=== PATIENT | female | born 1995 | race Caucasian/White ===

== ENCOUNTER → 2020-04-25 18:41 | Observation (INO) ==
[2020-04-25 17:03] VITALS: BP 121/69
[2020-04-25 18:04] LABS: Bacteria,Urine Few per hpf (None-Few); Bilirubin,Urine Negative (Negative); Blood,Urine Negative (Negative); Clarity,Urine Turbid (Clear); Color,Urine Light-Yellow (Yellow); Glucose,Urine (UA) Normal (Normal); Ketones,Urine Negative (Negative); Leukocyte Esterase,Urine Small (Negative); Mucus,Urine Few per lpf (None-Few); Nitrite,Urine Negative (Negative); Protein,Urine Negative (Neg-Trace); RBC,Urine 0-3 per hpf (0-3); Squamous Epithelial Cell,Urine Moderate per hpf (None-Few); Urobilinogen,Urine Normal (Normal)
== END | disposition home or self-care (01) ==
LOC: 1NENULAB
PROVIDERS: ADMIT Obstetrics & Gynecology; ATTEND Obstetrics & Gynecology

== ENCOUNTER → 2020-05-02 16:17 | Observation (INO) ==
[2020-05-02 15:51] LABS: Amorphous Sediment,Urine Few per hpf (None-Few); Bacteria,Urine Few per hpf (None-Few); Bilirubin,Urine Negative (Negative); Blood,Urine Negative (Negative); Clarity,Urine Turbid (Clear); Color,Urine Yellow (Yellow); Glucose,Urine (UA) Normal (Normal); Ketones,Urine Negative (Negative); Leukocyte Esterase,Urine Moderate (Negative); Mucus,Urine Few per lpf (None-Few); Nitrite,Urine Negative (Negative); PH,Urine 6.5 pH Units (5.0-8.0); Protein,Urine Trace mg/dL (Neg-Trace); Specific Gravity,Urine 1.013 (1.010-1.025); Squamous Epithelial Cell,Urine Moderate per hpf (None-Few); Transitional Epi Cells,Urine Few per hpf (None-Few); Urobilinogen,Urine Normal (Normal); WBC,Urine 15-30 per hpf (0-3)
== END | disposition home or self-care (01) ==
LOC: 1NENULAB
PROVIDERS: ADMIT Obstetrics & Gynecology; ATTEND Obstetrics & Gynecology

== ENCOUNTER → 2020-05-11 18:10 | Observation (INO) ==
[2020-05-11 15:49] LABS: Basophils % 0.2 %; Eosinophils % 0.4 %; Immature Granulocytes % 0.4 % (0-4); Lymphocytes # 1.4 K/mcL (0.6-4.6); Lymphocytes % 25.4 %; Mean Corpuscular HGB Conc 33.3 g/dL (31.6-35.5); Mean Corpuscular Hemoglobin 27.3 pg (28.0-33.3); Mean Corpuscular Volume 81.8 fL (83.0-100.0); Mean Platelet Volume 11.7 fL (9.4-12.4); Monocytes # 0.4 K/mcL (0.0-1.3); Monocytes % 7.6 %; Neutrophils # 3.7 K/mcL (1.6-8.9); Platelet Count 209 K/mcL (140-400); Red Cell Distribution Width 13.3 % (11.5-14.5); White Blood Count 5.7 K/mcL (4.3-11.1)
[2020-05-11 16:00] LABS: Protein/Creatinine Ratio,Urine 0.25 mg/mg (0.00-0.20)
[2020-05-11 16:06] LABS: Alanine Aminotransferase 173 Units/L (7-52); Aspartate Amino Transferase 75 Units/L (13-39); BUN/Creatinine Ratio 11 (6-26); Blood Urea Nitrogen 8 mg/dL (6-20); Lactate Dehydrogenase 183 Units/L (140-271); Uric Acid 6.7 mg/dL (2.3-7.6); eGFR For African Americans > 60 (> 60); eGFR For Non-African Americans > 60 (> 60)
== END | disposition home or self-care (01) ==
LOC: 1NENULAB
PROVIDERS: ADMIT Obstetrics & Gynecology; ATTEND Obstetrics & Gynecology

== ENCOUNTER 2020-05-24 | Inpatient (IN) ==
[2020-05-24] MEDS ORDERED: Famotidine 20 MG/2 ML VIAL IVP PRN (05:10)
[2020-05-24] MEDS ORDERED: Lidocaine 1% 20 ML MDV INFILT PRN (05:10)
[2020-05-24] MEDS ORDERED: Penicillin G Potassium 5,000,000 UNIT in 0.9 % Sodium Chloride Mini Bag 100 ML IVPB ONE (05:10)
[2020-05-24] MEDS ORDERED: Naloxone 0.4 MG/ML INJ IVP PRN (05:10)
[2020-05-24] MEDS ORDERED: Metoclopramide 10 MG/2 ML VIAL IVP PRN (05:10)
[2020-05-24] MEDS ORDERED: *HR* FentaNYL (PF) 100 MCG/2 ML VIAL IVP PRN (05:10)
[2020-05-24 05:51] LABS: Basophils % 0.3 %; Eosinophils # 0.1 K/mcL (0.0-0.6); Eosinophils % 0.9 %; Hematocrit 34.3 % (35.3-44.9); Hemoglobin 11.4 g/dL (11.5-15.4); Immature Granulocytes % 0.5 % (0-4); Lymphocytes % 26.3 %; Mean Corpuscular HGB Conc 33.2 g/dL (31.6-35.5); Mean Corpuscular Hemoglobin 27.1 pg (28.0-33.3); Mean Corpuscular Volume 81.5 fL (83.0-100.0); Mean Platelet Volume 11.8 fL (9.4-12.4); Monocytes # 0.5 K/mcL (0.0-1.3); Monocytes % 6.7 %; Neutrophils # 4.9 K/mcL (1.6-8.9); Platelet Count 199 K/mcL (140-400); Red Blood Count 4.21 M/mcL (3.82-4.97); Red Cell Distribution Width 13.9 % (11.5-14.5); Segmented Neutrophils % 65.3 %; White Blood Count 7.6 K/mcL (4.3-11.1)
[2020-05-24] MEDS: Ringers Solution, Lactated 1,000 ML IVC SCH ×3 (06:04→18:10)
[2020-05-24] MEDS ORDERED: miSOPROStoL 25 MCG TABLET VG PRN (07:23)
[2020-05-24 09:09] LABS: Blood Urea Nitrogen 9 mg/dL (6-20)
[2020-05-24 09:10] LABS: Alanine Aminotransferase 83 Units/L (7-52); BUN/Creatinine Ratio 11 (6-26); Glucose 85 mg/dL (70-105); Uric Acid 8.1 mg/dL (2.3-7.6); eGFR For African Americans > 60 (> 60); eGFR For Non-African Americans > 60 (> 60)
[2020-05-24 09:19] LABS: Amphetamine Screen,Urine Negative ng/mL (Cutoff=1000); Barbiturate Screen,Urine Negative ng/mL (Cutoff=200)
[2020-05-24 09:20] LABS: Benzodiazepines Screen,Urine Negative ng/mL (Cutoff=300); Cannabinoid Screen,Urine Negative ng/mL (Cutoff = 50); Cocaine Screen,Urine Negative ng/mL (Cutoff= 300); Opiate Screen,Urine Negative ng/mL (Cutoff=300); Phencyclidine Screen,Urine Negative ng/mL (Cutoff=25)
[2020-05-24 10:09] LABS: Aspartate Amino Transferase 51 Units/L (13-39); Lactate Dehydrogenase 232 Units/L (140-271)
[2020-05-24 10:16] LABS: Creatinine,Urine 31 mg/dL; Protein/Creatinine Ratio,Urine 0.36 mg/mg (0.00-0.20)
[2020-05-24] MEDS: Penicillin G Potassium 2,500,000 UNIT/105 ML UNIT IVPB SCH ×4 (10:22→22:11)
[2020-05-24] MEDS ORDERED: *HR* FentaNYL (PF) 100 MCG/2 ML VIAL EP ONE (11:27)
[2020-05-24] MEDS ORDERED: EPHEDrine 50 MG/ML VIAL IVP PRN (11:27)
[2020-05-24] MEDS ORDERED: Bupivacaine-MPF 0.25% 10 ML VIAL EP ONE (11:27)
[2020-05-24] MEDS ORDERED: Bupivacaine-MPF 0.25% 10 ML VIAL ONE (13:34)
[2020-05-24] MEDS ORDERED: *HR* FentaNYL (PF) 100 MCG/2 ML VIAL ONE ×2 (13:34→23:24)
[2020-05-24] MEDS: Oxytocin 20 units/ LR 1000 mL 20 UNIT/1,000 ML BAG IVC SCH (14:56)
[2020-05-24] MEDS: Epidural Premix (fent/bupiv) 110 ML EP SCH ×2 (16:44→23:51)
[2020-05-24] MEDS ORDERED: Ropivacaine/PF 0.2% 20 ML VIAL ONE (23:24)
[2020-05-24] MEDS ORDERED: *HR* Labetalol 20 MG/4 ML SYRINGE IVP ONE (23:25)
[2020-05-24] MEDS ORDERED: Ondansetron 4 MG/2 ML VIAL ONE (23:51)
[2020-05-25] MEDS: Penicillin G Potassium 2,500,000 UNIT/105 ML UNIT IVPB SCH ×2 (02:11→10:22)
[2020-05-25] MEDS: Epidural Premix (fent/bupiv) 110 ML EP SCH ×2 (05:28→09:44)
[2020-05-25] MEDS: Ringers Solution, Lactated 1,000 ML IVC SCH (05:29)
[2020-05-25 05:33] LABS: Basophils % 0.2 %; Hematocrit 35.6 % (35.3-44.9); Hemoglobin 11.5 g/dL (11.5-15.4); Immature Granulocytes % 0.4 % (0-4); Lymphocytes # 1.2 K/mcL (0.6-4.6); Lymphocytes % 9.2 %; Mean Corpuscular HGB Conc 32.3 g/dL (31.6-35.5); Mean Corpuscular Hemoglobin 27.7 pg (28.0-33.3); Mean Corpuscular Volume 85.8 fL (83.0-100.0); Mean Platelet Volume 11.7 fL (9.4-12.4); Monocytes # 0.6 K/mcL (0.0-1.3); Monocytes % 4.6 %; Neutrophils # 10.9 K/mcL (1.6-8.9); Platelet Count 199 K/mcL (140-400); Red Blood Count 4.15 M/mcL (3.82-4.97); Red Cell Distribution Width 14.2 % (11.5-14.5); Segmented Neutrophils % 85.6 %
[2020-05-25 05:34] LABS: White Blood Count 12.7 K/mcL (4.3-11.1)
[2020-05-25 05:49] LABS: Alanine Aminotransferase 97 Units/L (7-52); Aspartate Amino Transferase 59 Units/L (13-39); BUN/Creatinine Ratio 11 (6-26); Blood Urea Nitrogen 8 mg/dL (6-20); Lactate Dehydrogenase 204 Units/L (140-271); Uric Acid 7.8 mg/dL (2.3-7.6); eGFR For African Americans > 60 (> 60); eGFR For Non-African Americans > 60 (> 60)
[2020-05-25] MEDS: Oxytocin 20 units/ LR 1000 mL 20 UNIT/1,000 ML BAG IVC SCH (09:03)
[2020-05-25] MEDS ORDERED: Lidocaine -MPF 2% 5 ML VIAL ONE (09:33)
[2020-05-25] MEDS ORDERED: Ropivacaine/PF 0.2% 20 ML VIAL ONE (09:33)
[2020-05-25] MEDS ORDERED: Lanolin 7 G OINT...G. TP PRN (15:41)
[2020-05-25] MEDS ORDERED: Benzocaine/Menthol 56 GM AEROSOL SPRAY TP PRN (15:41)
[2020-05-25] MEDS ORDERED: Oxytocin 20 units/ LR 1000 mL 20 UNIT/1,000 ML BAG IVC SCH (15:41)
[2020-05-25] MEDS ORDERED: Rho Immune Globulin 1,500 UNIT SYRINGE IM PRN (15:41)
[2020-05-25] MEDS: Ibuprofen 600 MG TABLET PO SCH (16:41)
[2020-05-25] MEDS: ursodioL 300 MG CAPSULE PO SCH (21:44)
[2020-05-26] MEDS: Ibuprofen 600 MG TABLET PO SCH ×2 (00:17→09:45)
[2020-05-26 08:15] LABS: Alanine Aminotransferase 56 Units/L (7-52); Aspartate Amino Transferase 29 Units/L (13-39); BUN/Creatinine Ratio 13 (6-26); Blood Urea Nitrogen 10 mg/dL (6-20); Glucose 96 mg/dL (70-105); Lactate Dehydrogenase 197 Units/L (140-271); Uric Acid 7.5 mg/dL (2.3-7.6); eGFR For African Americans > 60 (> 60); eGFR For Non-African Americans > 60 (> 60)
[2020-05-26 08:28] LABS: Basophils % 0.2 %; Eosinophils % 0.4 %; Hematocrit 29.7 % (35.3-44.9); Immature Granulocytes % 0.8 % (0-4); Lymphocytes # 1.5 K/mcL (0.6-4.6); Lymphocytes % 14.3 %; Mean Corpuscular Hemoglobin 27.7 pg (28.0-33.3); Mean Corpuscular Volume 86.6 fL (83.0-100.0); Mean Platelet Volume 11.8 fL (9.4-12.4); Monocytes # 0.6 K/mcL (0.0-1.3); Monocytes % 6.1 %; Neutrophils # 8.2 K/mcL (1.6-8.9); Platelet Count 179 K/mcL (140-400); Red Blood Count 3.43 M/mcL (3.82-4.97); Red Cell Distribution Width 14.5 % (11.5-14.5); Segmented Neutrophils % 78.2 %; White Blood Count 10.5 K/mcL (4.3-11.1)
[2020-05-26 08:36] LABS: Hemoglobin 9.5 g/dL (11.5-15.4)
[2020-05-26] MEDS ORDERED: valACYclovir 500 MG TABLET PO SCH (09:00)
[2020-05-26] MEDS ORDERED: Prenatal Vit/FA 1 EACH TABLET PO SCH (09:00)
[2020-05-26] MEDS: ursodioL 300 MG CAPSULE PO SCH (09:46)
[2020-05-26] MEDS ORDERED: Acetaminophen 325 MG TABLET PO ONE (09:47)
[2020-05-26 12:26] VITALS: BP 147/74
== END 2020-05-26 15:30 | disposition home or self-care (01) | DRG 805 ==
LOC: 1NENULAB 05:01 → 1NENUOBS 05-25 15:15
PROVIDERS: ADMIT Obstetrics & Gynecology; ATTEND Obstetrics & Gynecology